=== PATIENT | male | born 1935 | race Caucasian/White ===

== ENCOUNTER 2016-06-26 13:52 | Outpatient (CLI) | payer MEDICARE, OTHER ==
[2016-05-12 13:30] VITALS: BP 134/69
== END 2016-06-26 13:53 ==
LOC: POD 13:52
PROVIDERS: ATTEND Podiatrist
DX: B35.1 Tinea unguium (principal); M79.674 Pain in right toe(s); M79.675 Pain in left toe(s)
CPT/HCPCS: 11721; G0463

== ENCOUNTER 2016-09-11 13:23 | Outpatient (CLI) | payer MEDICARE, OTHER ==
[2016-05-12 13:30] VITALS: BP 134/69
== END 2016-09-11 13:24 ==
LOC: POD 13:23
PROVIDERS: ATTEND Podiatrist
DX: B35.1 Tinea unguium (principal); M79.675 Pain in left toe(s); M79.674 Pain in right toe(s)
CPT/HCPCS: 11721; G0463

== ENCOUNTER 2016-12-11 13:16 | Outpatient (CLI) | payer MEDICARE, OTHER ==
[2016-05-12 13:30] VITALS: BP 134/69
== END 2016-12-11 13:17 ==
LOC: POD 13:16
PROVIDERS: ATTEND Podiatrist
DX: B35.1 Tinea unguium (principal); M79.674 Pain in right toe(s); M79.675 Pain in left toe(s)
CPT/HCPCS: 11721; G0463

== ENCOUNTER 2017-03-23 12:51 | Outpatient (CLI) | payer MEDICARE, OTHER ==
[2016-05-12 13:30] VITALS: BP 134/69
== END 2017-03-23 12:52 ==
LOC: POD 12:51
PROVIDERS: ATTEND Podiatrist
DX: B35.1 Tinea unguium (principal); M79.674 Pain in right toe(s); M79.675 Pain in left toe(s)
CPT/HCPCS: 11721; G0463

== ENCOUNTER 2017-06-25 13:27 | Outpatient (CLI) | payer MEDICARE, OTHER ==
[2016-05-12 13:30] VITALS: BP 134/69
== END 2017-06-25 13:30 ==
LOC: POD 13:27
PROVIDERS: ATTEND Podiatrist
DX: B35.1 Tinea unguium (principal); M79.674 Pain in right toe(s); M79.675 Pain in left toe(s)
CPT/HCPCS: 11721; G0463

== ENCOUNTER 2017-10-08 13:01 | Outpatient (CLI) | payer MEDICARE, OTHER ==
[2016-05-12 13:30] VITALS: BP 134/69
== END 2017-10-08 13:10 ==
LOC: POD 13:01
PROVIDERS: ATTEND Podiatrist
DX: B35.1 Tinea unguium (principal); M79.674 Pain in right toe(s); M79.675 Pain in left toe(s)
CPT/HCPCS: 11721; G0463